=== PATIENT | male | born 1985 | race Caucasian/White ===

== ENCOUNTER 2017-05-14 12:05 | Emergency (ER) | payer SELFPAY ==
[~2017-05-14] VITALS: Ht 182.9 cm; Wt 98.0 kg
[2017-05-14 12:07] VITALS: BP 149/76; PULSE 84; RESP 16; TEMP 98.2; O2SAT 97
[2017-05-14] MEDS ORDERED: PROMSYP3 PO (13:03)
--- NOTE | 2017-05-14 13:03 | PD ---
HPI Chief Complaint: Cold / Flu Symptoms Time Seen by Provider: 12:39 Travel History International Travel<30 days: No Contact w/Intl Traveler<30days: No Traveled to known affect area: No History of Present Illness HPI This is a 31-year-old male here with flulike illness 3 days. He is reporting fever, body aches, cough. Symptom severity is mild to moderate. No aggravating factors. Slightly improved with Tylenol. He is reporting maximum temperature of 101. He reports his mother had flu earlier this week. He denies chest pain or shortness of breath. PFS Past Medical History Medical History: Denies Significant Hx Tetanus Vaccination: > 5 Years Influenza Vaccination: No Past Surgical History Oral Surgery: Yes (nose and jaw r/t injury) Social History Alcohol Use: No Tobacco Use: No Substance Use: No Allergies-Medications (Allergen,Severity, Reaction): Coded Allergies: Penicillins (Verified Allergy, Severe, 05/14/17) Reported Meds & Prescriptions Reported Meds & Active Scripts Active No Active Prescriptions or Reported Medications Review of Systems Except as stated in HPI: all other systems reviewed are Neg General / Constitutional: Positive: Fever Eyes: No: Visual changes HENT: Positive: Sore Throat, Congestion, No: Headaches Respiratory: Positive: Cough Gastrointestinal: No: Abdominal Pain Genitourinary: No: Dysuria Musculoskeletal: Positive: Myalgias Physical Exam Narrative GENERAL: Alert 31-year-old male. Nontoxic appearing. SKIN: Warm and dry. No rash HEAD: Normocephalic. EYES: No injection or drainage. Ear/nose/throat: No TM erythema. Clear nasal discharge. Mild pharyngeal erythema without tonsillar hypertrophy or exudate. Uvula is midline. Airway is patent. NECK: Supple. No lymphadenopathy. No meningismus. CARDIOVASCULAR: Regular rate and rhythm. No murmur appreciated. RESPIRATORY: Breath sounds equal bilaterally. No accessory muscle use. GASTROINTESTINAL: Abdomen soft, non-tender, nondistended. MUSCULOSKELETAL: No cyanosis, or edema. BACK: No CVA tenderness. Data Data Last Documented VS Vital Signs Date Time Temp Pulse Resp B/P (MAP) Pulse Ox O2 Delivery O2 Flow Rate FiO2 05/14/17 12:20 16 97 Room Air 05/14/17 12:07 98.2 84 149/76 (100) MDM Medical Decision Making Medical Screen Exam Complete: Yes Emergency Medical Condition: Yes Differential Diagnosis Influenza, pneumonia, bronchitis Narrative Course This is a 31-year-old male with flulike illness. He is nontoxic appearing. His vital signs are stable. He is side of the window for treatment Tamiflu. Symptomatic treatment was discussed with patient. Diagnosis Primary Impression: Influenza-like illness Referrals: Primary Care Physician Departure Forms: Tests/Procedures, Work Release Enter return to work date: May 18, 2017 Additional Instructions: Tylenol and ibuprofen for pain and fever. Rest and stay well hydrated. Cough medication as needed. Scripts Dextromethorphan-Promethazine Liq (Promethazine-Dextromethorphan Liq) 6.25-15 Mg /5 Ml Syrp 10 ML PO Q6HR Y for COUGH, #120 ML Prov: Mariela Bertrand 05/14/17 Disposition: 01 DISCHARGE HOME Condition: Stable Mariela Bertrand May 14, 2017 13:03
== END 2017-05-14 13:09 | disposition home or self-care (01) ==
LOC: PHEFT 12:05
DX: R50.9 Fever, unspecified (principal); J02.9 Acute pharyngitis, unspecified; R09.81 Nasal congestion; R05 Cough; Z88.0 Allergy status to penicillin
CPT/HCPCS: 99283